=== PATIENT | female | born 1960 | race Caucasian/White ===

== ENCOUNTER → 2019-10-12 | Outpatient (CLI) | payer OTHER ==
--- NOTE | 2019-10-24 19:10 | KCIC ---
Bilateral digital screening mammograms with 3-D tomosynthesis: Reason for examination: Routine screening. No previous exams for comparison. New baseline. Bilateral mammograms in CC and oblique projections were obtained with 2-D imaging and 3-D tomosynthesis imaging on a Siemens Inspiration unit and reviewed on the workstation. Interpretation was made with the benefit of CAD. The skin and nipples show no abnormalities. No abnormal axillary lymph nodes are seen. The breast parenchyma is extremely dense. (Breast density: Category D.) There are no dominant masses, suspicious calcifications or architectural distortion. Impression: No evidence of malignancy. Recommend routine screening. Your patient's mammogram demonstrates that she has dense breast tissue (breast density category C or D), which could hide abnormalities, and if she has other risk factors for breast cancer that have been identified, she might benefit from supplemental screening tests that may be suggested by you as her ordering physician. Dense breast tissue, in and of itself, is a relatively common condition. Therefore, this information is not provided to cause undue concern, but rather to raise your awareness and to promote discussion with your patient regarding the presence of other risk factors, in addition to dense breast tissue. Your patient's mammography results will be sent to her. BI-RAD Category 1: Negative. "Our facility is accredited by the [employer] Mammography Program." This patient's information has been entered into a reminder system for the patient to be notified with the results of her examination and a target date for the next mammogram. Electronically signed by: Fiorella Ram MD (10/24/2019 7:07 PM) [email or web address]
== END | disposition home or self-care (01) ==
LOC: KCIC MAMMO 10:42
PROVIDERS: ATTEND Obstetrics & Gynecology
DX: Z12.31 Encounter for screening mammogram for malignant neoplasm of breast (principal)
CPT/HCPCS: 77063; 77067

== ENCOUNTER → 2020-10-23 | Outpatient (CLI) | payer OTHER ==
--- NOTE | 2020-10-23 16:04 | KCIC ---
2-D and 3-D (tomosynthesis) Digital mammogram, Bilateral History: Routine screening Comparison: Mammogram from 10/12/2019. Findings: Breast Tissue Density C : The breast tissue is heterogeneously dense, which may obscure small masses . There are no suspicious masses, malignant-appearing calcifications, or areas of architectural distort ion. Impression: No suspicious findings. Assessment: BI-RADS Category 1: Negative. Recommendations: Routine screening mammograms. The patient will receive a letter with the results in the mail. Your mammogram demonstrates that you have dense breast tissue, which could hide abnormalities, and if you have other risk factors for breast cancer that have been identified, you might benefit from supp lemental screening tests that may be suggested by your ordering physician. Dense breast tissue, in a nd of itself, is a relatively common condition. This information is not provided to cause undue conc vik, but rather to raise your awareness and to promote discussion with your physician regarding the p resence of other risk factors, in addition to dense breast tissue. A report of your mammography resul ts will be sent to you and your physician. You should contact your physician if you have any questio ns or concerns regarding this report. Patient information is entered into the [facility] reminder system using [employer] with a target due date for the next screening mammogram. The patient will receive a reminder. Electronically signed by: Sheila Angulo MD (10/23/2020 4:01 PM) [email or web address]
== END ==
LOC: KCIC MAMMO 09:04
PROVIDERS: ATTEND Obstetrics & Gynecology
DX: Z12.31 Encounter for screening mammogram for malignant neoplasm of breast (principal)
CPT/HCPCS: 77063; 77067